=== PATIENT | male | born 1985 | race Caucasian/White ===

== ENCOUNTER 2024-06-26 19:20 | Inpatient (IN) | payer BC, SELFPAY ==
--- NOTE | ~2024-06-26 | CT_ITS ---
CLINICAL HISTORY: recent SA by hanging from neck CT cervical spine without contrast Comparison: None Findings: Straightening of the cervical spine is likely positional. No significant degenerative change. No acute fractures or dislocations. Congenital nonfusion of the posterior arch of C1. Visualized intracranial contents are unremarkable. No cervical fluid collections or masses. IMPRESSION: No acute findings. This document has been electronically signed by: Liliya Alvarado MD on 06/29/2024 18:19:41
--- NOTE | ~2024-06-26 | CT_ITS ---
CLINICAL HISTORY: left-sided abd pain, s p colectomy, diverticular CT abdomen and pelvis with contrast Comparison: CT - CT ABDOMEN PELVIS W IV CON - 06/26/24 21:46 EDT Findings: No consolidation or effusion. Unremarkable gallbladder and solid organs. No urolithiasis. Surgical suture materials are noted at the cecum as well as rectosigmoid region. No evidence of bowel obstruction. Pelvic contents unremarkable. Normal appendix. No acute fracture. IMPRESSION: No acute findings. Postsurgical changes related to multifocal colon resection anastomosis without evidence of bowel obstruction. This document has been electronically signed by: Jean Dueñas MD on 06/26/2024 22:38:19
[2024-06-26 19:51] VITALS: BP 120/82; PULSE 91; RESP 18; TEMP 36.8; O2SAT 97; BMI 26.5
[2024-06-26 20:22] LABS: MANUAL DIFF FLAG NO
[2024-06-26 20:24] LABS: Basophils Percent Auto 0.5 % (0-2); Eosinophils Absolute Auto 0.1 X10*3/uL (0.0-0.4); Hematocrit 42.8 % (42.0-52.0); Hemoglobin 15.1 g/dl (14.0-18.0); Imm Gran Abs Auto 0.02 X10*3/uL (0.00-0.03); Imm Gran Pct Auto 0.3 % (0.0-0.4); Lymphocytes Percent Auto 26.3 % (20-40); Mean Corpuscular HGB Conc 35.3 g/dl (31.0-36.0); Mean Corpuscular Hemoglobin 31.7 pg (27.0-33.0); Mean Corpuscular Volume 89.9 fL (80.0-98.0); Mean Platelet Volume 8.5 fL (9.4-12.4); Monocytes Absolute Auto 0.6 X10*3/uL (0.1-1.2); Monocytes Percent Auto 7.3 % (2-11); Neutrophils Percent Auto 64.6 % (45-73); Platelet Count 227 X10*3/uL (160-400); Red Blood Count 4.76 X10*6/uL (4.60-5.80); Red Cell Distribution Width 13.3 % (11.0-16.0); White Blood Count 7.8 X10*3/uL (4.8-10.8)
[2024-06-26 20:41] LABS: Alanine Aminotransferase 32 U/L (0-40); Albumin Level 4.6 g/dL (3.5-5.0); Alkaline Phosphatase 70 U/L (39-117); Anion Gap 13 (12-20); Aspartate Amino Transferase 28 U/L (5-37); Bilirubin Total 0.7 mg/dL (0.0-1.0); Blood Urea Nitrogen 9 mg/dL (9-16); Calcium 9.3 mg/dL (8.4-10.2); Carbon Dioxide 26 mmol/L (22-29); Chloride 106 mmol/L (96-108); Creatinine Clr Calc Pharmacy 118.8; Estimated Glomerular Filt Rate > 60; Ethanol < 10 mg/dL; Glucose Random 87 mg/dL (60-115); Sodium 141 mmol/L (135-145); Total Protein 8.2 g/dL (6.5-8.0)
--- NOTE | 2024-06-26 20:59 | ED_ITS ---
HPI - General Adult General Chief complaint: Psychiatric Symptoms Stated complaint: crisis Time Seen by Provider: 06/26/24 20:39 Source: patient Mode of arrival: ambulatory Limitations: no limitations History of Present Illness ED Provider: DR. Hyman HPI narrative: 39-year-old male came in for evaluation of left-sided abdominal pain, patient with history of chronic abdominal pain and history of diverticular disease, s/p colectomy and ileostomy done at [facility], patient stated that he live with a left-sided abdominal chronic pain causing him severe depression and causing him suicidal ideation, patient unsuccessful suicidal attempt 3 days ago hanging himself in the garage. patient still feels depressed with a plan of jump off the bridge or into traffic. Patient is prescribed ibuprofen for chronic pain. Related Data Allergies Allergy/AdvReac Type Severity Reaction Status Date / Time acetaminophen [From Percocet] AdvReac Drowsy Verified 06/26/24 19:51 metronidazole [From Flagyl] AdvReac Hives Verified 06/26/24 19:52 oxycodone [From Percocet] AdvReac Drowsy Verified 06/26/24 19:51 Review of Systems 2 Review of Systems: all other systems are reviewed and are negative Constitutional: Reports as per HPI and Reports no additional constitutional complaints Eyes: Reports as per HPI and Reports no additional eye complaints Reports system reviewed and no additional complaints, except as documented Cardiovascular: Reports as per HPI and Reports no additional cardiovascular complaints Respiratory: Reports as per HPI and Reports no additional respiratory complaints Gastrointestinal: Reports as per HPI and Reports no additional gastrointestinal complaints Genitourinary: Reports no additional female genitourinary complaints Musculoskeletal: Reports no additional musculoskeletal complaints Skin/Breast: Reports system reviewed and no additional complaints, except as docu Psychiatric: Reports no additional psychiatric complaints Endocrine: Reports no additional endocrine complaints Hematologic/Lymphatic: Reports no additional hematologic/lymphatic complaints Allergic/Immunologic: Reports no additional allergic/immunologic complaints Reports system reviewed and no additional complaints, except as documented and Reports Abnormal speech present [facility] Social History Social History Smoked in Last 30 Days: No Use of substances other than those prescribed or required for medical reasons: Yes Substance Use Type: Marijuana Advance Directives: Yes Advance Directives Information Provided: Yes Advance Directives on File: No Do you have a plan to hurt others: No Plan Physical Exam ED Vital Signs: Vital Signs - 24 hr 06/26/24 19:51 06/26/24 21:30 Temperature 98.3 F Pulse Rate 91 86 Respiratory Rate 18 16 Blood Pressure 120/82 120/79 Pulse Oximetry 97 97 Oxygen Delivery Method Room Air Room Air BMI result Body Mass Index 26.5 Vital signs have been reviewed and appear to be correct. Blood pressure elevated. Heart rate normal. Respiratory rate normal. Temperature normal. Oxygen saturation normal. Appearance: Alert. Oriented X3. No acute distress. Head: Normal external exam. Normocephalic. Atraumatic. No Sharma signs noted. No raccoon eyes noted Eyes: PERRLA. EOMI. Conjunctiva and sclera normal. Eyelids normal. ENT: TM's Normal. Pharynx normal. Uvula midline. Moist mucous membranes. No trismus noted. No drooling noted. No muffled voice noted. Neck: Normal inspection. Neck supple. FROM. No adenopathy. Thyroid Normal. No meningeal signs. No neck mass noted. CVS: Normal heart rate and rhythm. Heart sound normal. No murmurs noted. Pulses normal throughout. Respiratory: No respiratory distress. Painless inspiration. Breath sounds normal. No wheezes/rales/rhonchi noted. Chest nontender. No accessory muscle usage noted or decreased air movement noted. Abdomen: Soft and nontender. Bowel sounds normal in all 4 quadrants. No distention noted. No organomegaly noted. No visible injury noted. Back: No CVA tenderness. Full range of motion noted. Skin: Skin warm and dry. Normal skin color. Normal skin turgor. No rashes/lesions/lacerations noted. Extremities: No lower extremity edema. Extremities exhibit normal range of motion. Extremities nontender. Neuro: Oriented X 3. Cranial nerve exam: II-XII are grossly intact No motor deficit. No sensory deficit. Reflexes normal. Patient Orientation: Person, Place, Time and Situation, okay hygiene and grooming. Fair eye contact, attentive, no tics or tremors. Level of Consciousness: Awake, Appropriate and Alert Patient Behavior: Appropriate, Guarded, Cooperative and Anxious Mood Description: Constricted, Blunted and Apprehensive Affect Description: Constricted, Blunted and Apprehensive Patient Cognition Impaired: No Ability to Follow Directions: Excellent Speech Pattern: Clear, Appropriate and Spontaneous Speech, nonpressured, spontaneous with regular rate and rhythm, normal volume and prosody. No dysarthria. Memory Description: Intact, Immediate Intact and Short Term Intact Hallucinations: None Delusions: Not Present Thought Process: Intact Thought Content: positive for Intact, positive for Logical, +suicidal ideation with plan of either hanging himself/ jumping into traffic or of the bridge. , no homicidal ideation. Depressive Symptoms: Not present. Judgement and Insight: Limited but adequate. Course Reevaluation(s) Reevaluation #1: unsuccessful SI attempt today, patient is still feeling suicidal secondary to chronic abdominal pain, workup for abdominal pain today is unremarkable revealing no acute process will refer to care team for further evaluation. Patient is under section 12. Time: 23:48 Medications Administered Discontinued Medications Generic Name Dose Route Start Last Admin Trade Name Froyq PRN Reason Stop Dose Admin Iohexol 85 ml 06/26/24 21:55 06/26/24 21:55 Iohexol 350 Mg/Ml 100 Ml Infus..Btl IV 06/26/24 21:56 85 ml ONCE ONE Administration Ketorolac Tromethamine 15 mg 06/26/24 20:55 06/26/24 21:33 Ketorolac Tromethamine 15 Mg/Ml Vial IVPUSH 06/26/24 20:56 15 mg ONCE ONE Administration Morphine Sulfate 2 mg 06/26/24 20:55 06/26/24 21:33 Morphine Sulfate 2 Mg/Ml Cartridge IVPUSH 06/26/24 20:56 2 mg ONCE ONE Administration Protocol Medical Decision Making Differential Diagnosis Differential Diagnoses: The differential diagnosis associated with the presentation includes ( Chronic abdominal pain, acute diverticulitis small- bowel obstruction, pancreatitis, severe anemia, electrolyte derangement, severe depression, suicidal ideation, medical clearance.) Admission/Observation Consideration of admission/observation: Escalation of care including admission/observation considered Lab Data MDM Lab Attestation statement: I reviewed the patient's lab results. 06/26/24 20:19 06/26/24 20:19 Labs: Lab Results 06/26/24 Range/Units 20:19 WBC 7.8 (4.8-10.8) X10*3/uL RBC 4.76 (4.60-5.80) X10*6/uL Hgb 15.1 (14.0-18.0) g/dl Hct 42.8 (42.0-52.0) % MCV 89.9 (80.0-98.0) fL MCH 31.7 (27.0-33.0) pg MCHC 35.3 (31.0-36.0) g/dl RDW 13.3 (11.0-16.0) % Plt Count 227 (160-400) X10*3/uL MPV 8.5 L (9.4-12.4) fL Immature Gran % (Auto) 0.3 (0.0-0.4) % Neut % (Auto) 64.6 (45-73) % Lymph % (Auto) 26.3 (20-40) % [place] % (Auto) 7.3 (2-11) % Eos % (Auto) 1.0 (0-4) % Baso % (Auto) 0.5 (0-2) % Lymph # (Auto) 2.0 (1.2-4.9) X10*3/uL [place] # (Auto) 0.6 (0.1-1.2) X10*3/uL Eos # (Auto) 0.1 (0.0-0.4) X10*3/uL Baso # (Auto) 0.0 (0.0-0.2) X10*3/uL Abs Immat Gran (auto) 0.02 (0.00-0.03) X10*3/uL Absolute Neuts (auto) 5.0 (2.0-8.3) x10*3/uL Absolute Nucleated RBC 0.000 (0.0-0.012) X10*3/uL Nucleated RBC % (auto) 0.0 (0.0-0.2) /100WBC Sodium 141 (135-145) mmol/L Potassium 4.0 (3.3-5.1) mmol/L Chloride 106 (96-108) mmol/L Carbon Dioxide 26 (22-29) mmol/L Anion Gap 13 (12-20) BUN 9 (9-16) mg/dL Creatinine 0.78 (0.5-1.4) mg/dL Estim Creat Clear Calc 118.8 Estimated GFR > 60 Random Glucose 87 (60-115) mg/dL Calcium 9.3 (8.4-10.2) mg/dL Total Bilirubin 0.7 (0.0-1.0) mg/dL AST 28 (5-37) U/L ALT 32 (0-40) U/L Alkaline Phosphatase 70 (39-117) U/L Total Protein 8.2 H (6.5-8.0) g/dL Albumin 4.6 (3.5-5.0) g/dL Lipase 11 (8-78) U/L Ethyl Alcohol < 10 mg/dL Independent Interpretation I performed an independent interpretation of an: CT Scan ( Abdomen pelvis:No acute findings. Postsurgical changes related to multifocal colon resection anastomosis without evidence of bowel obstruction.) Radiology Impression Discussion of test interpretation with radiology: I have reviewed the radiologist's reading. Chronic Conditions Patient?s care impacted by: Other ( Diverticular disease, previous intra- abdominal surgery.) Discharge Plan Discharge Clinical Impression: Depression, Suicidal ideation, Chronic abdominal pain Patient Disposition: Still a Patient Interventions: [place]so-Suicide Risk Severity Scale Last Done: 06/26/24 21:38 Print Language: Tajik
[2024-06-26 21:09] LABS: Lipase 11 U/L (8-78)
[2024-06-26 21:30] VITALS: BP 120/79; PULSE 86; RESP 16; O2SAT 97
[2024-06-26] MEDS: Ketorolac Tromethamine 15 MG/ML VIAL IVPUSH (21:33)
[2024-06-26] MEDS: Morphine Sulfate 2 MG/ML CARTRIDGE IVPUSH (21:33)
[2024-06-26] MEDS: iohexoL 350 MG/ML 100 ML INFUS..BTL 85 ML IV (21:55)
--- NOTE | 2024-06-27 | ECG_ITS ---
Test Reason : QTC Check Blood Pressure : */* mmHG Vent. Rate : 60 BPM Atrial Rate : 60 BPM P-R Int : 150 ms QRS Dur : 90 ms QT Int : 364 ms P-R-T Axes : 29 91 54 degrees QTcB Int : 364 ms Normal sinus rhythm Rightward axis Early repolarization Borderline ECG No previous ECGs available Referred By: Eliane Gay Electronically Signed By: Kobe Arnett
[2024-06-27 00:52] VITALS: BP 117/60; PULSE 82; RESP 16; TEMP 36.4; O2SAT 98
--- NOTE | 2024-06-27 00:53 | PC.NURSE ---
pt report he is depressed, no SI at this time, care team into discuss plan of care, bed search, vitals taken, pt resting in recliner.
[2024-06-27 06:00] VITALS: BP 104/58; PULSE 58; RESP 16; TEMP 36.1; O2SAT 98
--- NOTE | 2024-06-27 06:11 | PC.NURSE ---
pt sleeping all night, pt is calm and cooperative, pt remains on a 1:1 for safety.
[2024-06-27 07:59] LABS: Appearance Urine Clear; Color Urine Dark Yellow; Glucose Urine UA Negative (Negative); Leukocyte Esterase Urine Negative (Negative); Nitrite Urine Negative (Negative); PH 6.5 (5.0-9.0); Specific Gravity - Urine >= 1.030 (1.005-1.025); UMIC TRIGGER UACC YES; Urine Blood Small (1+) (Negative); Urine Ketones Trace mg/dL (Negative); Urine Protein 30 (1+) mg/dL (Neg-Trace)
[2024-06-27 08:08] LABS: Amphetamine Screen Urine Not Detected (Not Detect); Bacteria Urine None Seen (None Seen); Barbiturates, Urine Not Detected (Not Detect); Benzodiazepines Screen Urine POSITIVE (Not Detect); Buprenorphine Scr Not Detected (Not Detect); Cannabinoid Screen Urine POSITIVE (Not Detect); Cocaine Screen Urine Not Detected (Not Detect); Fentanyl, urine Not Detected (Not Detect); Hyaline Casts Urine 0-2 /LPF (0-2); Methadone Screen, Urine Not Detected (Not Detect); Opiate Screen Urine POSITIVE (Not Detect); Oxycodone Screen Urine Not Detected (Not Detect); Phencyclidine Screen Urine Not Detected (Not Detect); RBC Urine 0-2 /HPF (0-2); Squamous Epithelial Cell Urine 0-2 /HPF (0-2); WBC Urine 0-5 /HPF (0-5)
--- NOTE | 2024-06-27 09:00 | PHA.MEDREC ---
Pharmacy Consult ? Medication Reconciliation Pharmacy has reviewed the medication reconciliation. Med list matches claims, called [facility] to confirm directions on Colestipol.
[2024-06-27 09:05] VITALS: BP 130/84; PULSE 81; RESP 20; TEMP 36.6; O2SAT 96
[2024-06-27] MEDS: buPROPion HCl XL 150 MG TAB.ER.24H PO (10:05)
[2024-06-27] MEDS: Ibuprofen 800 MG TABLET PO ×3 (10:05→21:16)
[2024-06-27] MEDS: Cyanocobalamin (Vitamin B-12) 1,000 MCG TABLET 1000 MCG PO (10:05)
[2024-06-27] MEDS: Escitalopram Oxalate 20 MG TABLET PO (10:05)
--- NOTE | 2024-06-27 12:01 | PC.NURSE ---
Pt will be transitioning to M5. RN to RN completed. IV access removed without complication. Pt awaiting transport.
[2024-06-27 12:34] VITALS: BMI 25.7
[2024-06-27 12:35] VITALS: BP 149/90; PULSE 83; TEMP 36.3; O2SAT 97
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
[2024-06-27] MEDS: diazePAM 2 MG TABLET PO ×2 (17:23→23:24)
[2024-06-27 20:00] VITALS: BP 134/86; PULSE 92; RESP 16; TEMP 36.3; O2SAT 99
[2024-06-27] MEDS: traZODone HCL 50 MG TABLET PO ×2 (21:16→23:24)
[2024-06-27] MEDS: COLESTIPOL 1 GM 3 EACH PO (21:16)
[2024-06-27] MEDS: Magnesium Hydrox/Alum Hydrox 30 ML ORAL.SUSP PO (21:43)
[2024-06-28 07:00] VITALS: BMI 25.9
[2024-06-28 08:00] VITALS: BP 112/86; PULSE 92; RESP 18; TEMP 36.8; O2SAT 100
[2024-06-28] MEDS: Cyanocobalamin (Vitamin B-12) 1,000 MCG TABLET 1000 MCG PO (08:29)
[2024-06-28] MEDS: COLESTIPOL 1 GM 3 EACH PO ×2 (08:29→21:38)
[2024-06-28] MEDS: Ibuprofen 800 MG TABLET PO ×3 (08:29→21:37)
[2024-06-28] MEDS: Escitalopram Oxalate 20 MG TABLET PO (08:30)
[2024-06-28] MEDS: buPROPion HCl XL 150 MG TAB.ER.24H PO ×2 (08:30→14:05)
[2024-06-28 09:08] LABS: Estimated Average Glucose 105 mg/dL; Hemoglobin A1C 139.4076 umol/L; Hemoglobin A1c % 5.3 % (<6.0); Total Hemoglobin (HGBA1C) 4014.1568 umol/L
[2024-06-28 09:12] LABS: Cholesterol 141 mg/dL (<200); HDL Cholesterol 55 mg/dL (>40); LDL Cholesterol Calculated 70 mg/dL (<100); Triglycerides 81 mg/dL (<150)
[2024-06-28 09:13] LABS: Alanine Aminotransferase 30 U/L (0-40); Albumin Level 4.5 g/dL (3.5-5.0); Alkaline Phosphatase 70 U/L (39-117); Anion Gap 12 (12-20); Aspartate Amino Transferase 23 U/L (5-37); Bilirubin Total 0.9 mg/dL (0.0-1.0); Blood Urea Nitrogen 11 mg/dL (9-16); Calcium 9.2 mg/dL (8.4-10.2); Carbon Dioxide 27 mmol/L (22-29); Chloride 105 mmol/L (96-108); Creatinine Clr Calc Pharmacy 110.3; Estimated Glomerular Filt Rate > 60; Glucose Fasting 99 mg/dL (60-99); Potassium 3.8 mmol/L (3.3-5.1); Sodium 140 mmol/L (135-145); Total Protein 8.2 g/dL (6.5-8.0)
[2024-06-28 09:28] LABS: TSH reflex Free T4 1.33 uIU/mL (0.32-4.0)
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
--- NOTE | 2024-06-28 10:24 | CONS_ITS ---
DATE OF SERVICE: 06/28/2024 REFERRING PHYSICIAN: Hilario Mcallister MD REASON FOR CONSULTATION: Abdominal pain. HISTORY OF PRESENT ILLNESS: The patient is a pleasant 39-year-old man who was admitted to the inpatient psychiatric unit on June 26 after presenting to the emergency room with complaints of abdominal pain. He has a history of abdominal pain and is followed by a GI provider in [place]. He also has a history of diverticular disease with prior surgery including resection and ostomy with subsequent takedown for apparent perforated diverticulitis. He believes his last colonoscopy was several years ago. He describes chronic abdominal discomfort, which is in the epigastric area, worse after eating, and sometimes relieved by bowel movements. The abdominal discomfort has a crampy component and radiates across the abdomen. There were no other precipitating or relieving factors. He has been on medication in the past which has helped, but is unsure of the name. PAST MEDICAL HISTORY: 1. Abdominal pain and history of diverticular disease with resection as above. 2. Depression with suicide attempt. CURRENT MEDICATIONS: Current medication list is reviewed in the chart. He has a history of irritable bowel syndrome and has been on cholestyramine for this. ALLERGIES: MULTIPLE MEDICATION ALLERGIES ARE REVIEWED. FAMILY HISTORY: This is reviewed with the patient and is noncontributory. SOCIAL HISTORY: He denies tobacco use. He does use marijuana and states alcohol use is occasional. REVIEW OF SYSTEMS: SKIN: No pruritus. HEENT: Negative. CARDIOPULMONARY: No shortness of breath or chest pain. GASTROINTESTINAL: As above. GENITOURINARY: Negative. NEUROPSYCHIATRIC: Negative. PHYSICAL EXAMINATION: GENERAL: Shows a pleasant male, sitting comfortably in bed. VITAL SIGNS: Reviewed in electronic medical record and are stable. SKIN: Anicteric. HEENT: Shows no scleral icterus. NECK: Without lymphadenopathy or thyromegaly. LUNGS: Clear. HEART: Shows a regular rate and rhythm. S1, S2. No murmur. ABDOMEN: Soft without focal masses or tenderness. Bowel sounds are present. No organomegaly is noted. EXTREMITIES: Without edema. LABORATORY DATA: Remarkable for white blood cell count of 7.8. Chemistries are fairly unremarkable. Tox screen was positive for opiates, benzodiazepines, and marijuana. Imaging of the abdomen includes CT scanning of the abdomen and pelvis which shows surgical changes without obstruction. IMPRESSION: Abdominal pain with abdominal symptoms are consistent with irritable bowel syndrome. I have recommended a trial of dicyclomine 10 mg 4 times daily. We will review outside records as they become available. The patient requested a low fat diet with Ensure supplements and this will be ordered. Thanks for asking me to see him. I will follow him in the hospital as needed. MD CHAD Dao/PAULO / [phone]
[2024-06-28] MEDS: Dicyclomine HCl 10 MG CAPSULE PO ×2 (11:14→17:08)
[2024-06-28] MEDS: Famotidine 20 MG TABLET PO (14:05)
[2024-06-28] MEDS: hydrOXYzine HCL 25 MG TABLET PO (17:28)
[2024-06-28 20:00] VITALS: BP 111/73; PULSE 82; RESP 16; TEMP 36.7; O2SAT 98
[2024-06-28 21:37] VITALS: BP 111/73
[2024-06-28] MEDS: diazePAM 2 MG TABLET PO (21:37)
[2024-06-28] MEDS: traZODone HCL 100 MG TABLET PO (21:37)
[2024-06-28] MEDS: cloNIDine HCL 0.1 MG TABLET PO (21:37)
[2024-06-29] MEDS: Dicyclomine HCl 10 MG CAPSULE PO ×3 (07:28→17:05)
[2024-06-29 07:49] VITALS: BP 101/55; PULSE 86; TEMP 36.4; O2SAT 98
[2024-06-29] MEDS: Escitalopram Oxalate 20 MG TABLET PO (08:44)
[2024-06-29] MEDS: COLESTIPOL 1 GM 3 EACH PO ×2 (08:44→20:19)
[2024-06-29] MEDS: Famotidine 20 MG TABLET PO (08:45)
[2024-06-29] MEDS: buPROPion HCl XL 300 MG TAB.ER.24H PO (08:45)
[2024-06-29] MEDS: Ibuprofen 800 MG TABLET PO ×3 (08:45→20:18)
[2024-06-29] MEDS: Cyanocobalamin (Vitamin B-12) 1,000 MCG TABLET 1000 MCG PO (08:46)
[2024-06-29] MEDS: diazePAM 2 MG TABLET PO ×2 (13:12→18:40)
--- NOTE | 2024-06-29 13:12 | PC.NURSE ---
pt reports abdominal pain 8/10, anxiety 5/10. Valium 2mg administered, effectiveness pending
--- NOTE | 2024-06-29 16:30 | P.PNPSI_ITS ---
Subjective Subjective Date of Service: 06/29/24 Reason For Visit: Depression SI Interim History: Met with patient; discussed with team Patient remains depressed but overall feeling better and more optimistic. Patient is talking about his plans for aftercare and trying to figure out where he might live. Patient somewhat ambivalent, saying he wants to get back to work as soon as possible but also feels that he is benefitting from being on the unit and wants to make sure that medication regimen and aftercare plans or set up before he leaves. Patient agrees to leave Wellbutrin at current dose and see how it goes; slept well last night and agrees to having trazodone scheduled. Remains without any SI at all and again says how regretful he was, saying that was such a stupid thing and he would never do it again Mental Status Exam Mental Status Exam Narrative: Pt is alert and oriented; behavior is cooperative, calm, friendly; patient is not in distress; dressed in casual attire with with adequate hygiene and grooming; mood is described as okay and affect congruent, less downcast; eye contact a little appropriate; Speech is a little slowed, soft; normal prosody; some psychomotor retardation present; thought process is organized and goal directed; Thought content is on planning for aftercare, psychosocial stressors, tx; otherwise pertinent to relevant topics and without any delusional content, paranoid ideations or grandiosity; denies any SI/HI. Denies AVH and there is no evidence of perceptual disturbance. Patients insight and judgment fair Diagnostics Vital Signs (24Hr): Vital Signs - 24 hr 06/28/24 20:00 06/28/24 21:37 06/29/24 07:49 Temperature 98.1 F 97.5 F Pulse Rate 82 86 Respiratory Rate 16 Blood Pressure 111/73 111/73 101/55 L Pulse Oximetry 98 98 Oxygen Delivery Method Room Air Room Air BMI result Body Mass Index 25.9 Labs 06/26/24 20:19 06/28/24 07:59 Labs: Laboratory Results - last 48 hr 06/28/24 07:59 Sodium 140 Potassium 3.8 Chloride 105 Carbon Dioxide 27 Anion Gap 12 BUN 11 Creatinine 0.84 Estim Creat Clear Calc 110.3 Estimated GFR > 60 Fasting Glucose 99 Estimat Average Glucose 105 Hemoglobin A1c % 5.3 Calcium 9.2 Total Bilirubin 0.9 AST 23 ALT 30 Alkaline Phosphatase 70 Total Protein 8.2 H Albumin 4.5 Triglycerides 81 Cholesterol 141 LDL Cholesterol, Calc 70 HDL Cholesterol 55 TSH 1.33 Medications Medications Current Medications Al Hydroxide/Mg Hydroxide (Magnesium Hydrox/Alum Hydrox 30 Ml Oral.Susp) 30 ml PO Q6H PRN PRN Reason: Heartburn/Nausea Last Admin: 06/27/24 21:43 Dose: 30 ml Bupropion HCl (Bupropion Hcl Xl 300 Mg Tab.Er.24h) 300 mg PO DAILY [facility] Last Admin: 06/29/24 08:45 Dose: 300 mg Clonidine HCl (Clonidine Hcl 0.1 Mg Tablet) 0.1 mg PO BEDTIME [facility]; Protocol Last Admin: 06/28/24 21:37 Dose: 0.1 mg Clonidine HCl (Clonidine Hcl 0.1 Mg Tablet) 0.1 mg PO Q4H PRN; Protocol PRN Reason: moderate anxiety Cyanocobalamin (Cyanocobalamin (Vitamin B-12) 1,000 Mcg Tablet) 1,000 mcg PO DAILY [facility] Last Admin: 06/29/24 08:46 Dose: 1,000 mcg Diazepam (Diazepam 2 Mg Tablet) 2 mg PO TID PRN PRN Reason: abdominal discomfort Last Admin: 06/29/24 13:12 Dose: 2 mg Dicyclomine HCl (Dicyclomine Hcl 10 Mg Capsule) 10 mg PO TIDAC [facility] Last Admin: 06/29/24 12:21 Dose: 10 mg Escitalopram Oxalate (Escitalopram Oxalate 20 Mg Tablet) 20 mg PO DAILY [facility] Last Admin: 06/29/24 08:44 Dose: 20 mg Famotidine (Famotidine 20 Mg Tablet) 20 mg PO DAILY [facility] Last Admin: 06/29/24 08:45 Dose: 20 mg Hydroxyzine HCl (Hydroxyzine Hcl 25 Mg Tablet) 25 mg PO Q6H PRN PRN Reason: mild anxiety Last Admin: 06/28/24 17:28 Dose: 25 mg Ibuprofen (Ibuprofen 800 Mg Tablet) 800 mg PO TID [facility] Last Admin: 06/29/24 15:40 Dose: 800 mg Magnesium Hydroxide (Milk Of Magnesia 30 Ml Oral.Susp) 30 ml PO DAILY PRN PRN Reason: Constipation Nicotine (Nicotine 21 Mg Patch.Td24) 21 mg TRANSDERMA DAILY PRN PRN Reason: smoking cessation Nicotine Polacrilex (Nicotine Polacrilex 2 Mg Gum) 4 mg BUCCAL Q2H PRN PRN Reason: Nicotine Cravings Pat Own Med ( Colestipol 1 Gram Tablet) 3 gm PO BID [facility] Last Admin: 06/29/24 08:44 Dose: 3 gm Olanzapine (Olanzapine 5 Mg Tablet) 5 mg PO TID PRN PRN Reason: agitation Trazodone HCl (Trazodone Hcl 50 Mg Tablet) 50 mg PO BEDTIME PRN PRN Reason: continued Insomnia Trazodone HCl (Trazodone Hcl 100 Mg Tablet) 100 mg PO BEDTIME [facility] Allergies Allergies Allergy/AdvReac Type Severity Reaction Status Date / Time acetaminophen [From Percocet] AdvReac Drowsy Verified 06/26/24 19:51 metronidazole [From Flagyl] AdvReac Hives Verified 06/26/24 19:52 oxycodone [From Percocet] AdvReac Drowsy Verified 06/26/24 19:51 Assessment & Plan Assessment & Plan (1) MDD (major depressive disorder), recurrent severe, without psychosis: Status: Acute Code(s): F33.2 - Major depressive disorder, recurrent severe without psychotic features (2) PTSD (post-traumatic stress disorder): Status: Acute Code(s): F43.10 - Post-traumatic stress disorder, unspecified (3) Seasonal affective disorder: Status: Acute Code(s): F33.8 - Other recurrent depressive disorders Plan Patient is a 39-year-old male with history of PTSD, MDD, diverticular disease s/p resection and ostomy (reanastomosed in 2020) who presents for worsening depression and recent suicide attempt in the face of psychosocial stressors and marital strife. Patient reports that he has been depressed off and on since his surgery in 2020. Patient's depression is typically worse in the wintertime but for the past several months patient depression has worsened has he his fiancee have been having marital strife; depression worsened this past May as he started to have abdominal pain although cleared by his GI provider/CT scan. Patient works many hours a week, takes classes for his GED and gets only 2-3 hours of sleep a night. About a week ago patient had a discussion with his fiancee he wanted to end the relationship. This past week patient woke up in the morning, with abdominal pain that has unremitting and feeling particularly depressed and hopeless. Patient says this past [place] he had no plans or thoughts of suicide however on this particular mourning the thought occur to him and he went to hang himself in the basement but when this was not an option he went to the garage and did hang himself from the rafters but after a short moment, the rafters broke and he fell to the ground. Patient immediately regretted his attempt and did not tell anyone, cleaning up the mess. Patient's SI fully resolved however he remained depressed. He presented to the emergency room for abdominal pain at which time he said that he had tried to hang himself earlier in this week and so was psychiatrically admitted. Formulation/clinical reasoning: Patient seen by GI who addressed abdominal pain and started on medications that seem to be helping which is making patient more relaxed Patient shares that he fully regrets his suicide attempt, knows he needs to be here for his children and is embarrassed by his behavior; denies any SI at all and says whenever do it again. He does however acknowledge his depression which has been untreated for quite some time, patient pushing himself to cope with it on his own. Patient has been on Wellbutrin XL 150 mg and Lexapro 20 mg for about a year with no benefit. He agrees that he needs help and is open to medication management. -patient did have suicide attempt by hanging about 3 days prior to presenting to the emergency room; no CT cervical spine ordered so will order on now; discussed with Dr. Gay who agrees CTA unnecessary at this time Hospital course: 06/29Patient remains depressed but overall feeling better and more optimistic. Patient is talking about his plans for aftercare and trying to figure out where he might live. Patient somewhat ambivalent, saying he wants to get back to work as soon as possible but also feels that he is benefitting from being on the unit and wants to make sure that medication regimen and aftercare plans or set up before he leaves. Patient agrees to leave Wellbutrin at current dose and see how it goes; slept well last night and agrees to having trazodone scheduled. Remains without any SI at all and again says how regretful he was, saying that was such a stupid thing and he would never do it again -abdominal pain remains relieved -CT cervical spine still pending; continuity writer reached out to manager of radiology to see if can get impression read Plan Continue Wellbutrin XL to 300 mg daily Continue Lexapro 20 mg daily Add clonidine p.r.n. Add trazodone p.r.n. dr. Flores abdominal pain with abdominal symptoms are consistent with irritable bowel syndrome. I have recommended a trial of dicyclomine 10 mg 4 times daily Patient educated on: diagnosis, medication risk/benefits and medical condition Informed Consent: understands Reason for continued inpatient stay Substantial Risk for: rapid decompensation Time Spent With Patient Time: Total time managing care of this patient today ____ minutes.
[2024-06-29 20:00] VITALS: BP 125/68; PULSE 98; RESP 16; TEMP 37.1; O2SAT 98
[2024-06-29] MEDS: traZODone HCL 100 MG TABLET PO (20:18)
[2024-06-29] MEDS: cloNIDine HCL 0.1 MG TABLET PO (20:18)
[2024-06-29] MEDS: hydrOXYzine HCL 25 MG TABLET PO (20:19)
[2024-06-30 08:00] VITALS: BP 119/74; PULSE 94; RESP 16; TEMP 36.6; O2SAT 97
[2024-06-30] MEDS: Famotidine 20 MG TABLET PO (09:36)
[2024-06-30] MEDS: Ibuprofen 800 MG TABLET PO ×3 (09:36→22:08)
[2024-06-30] MEDS: Cyanocobalamin (Vitamin B-12) 1,000 MCG TABLET 1000 MCG PO (09:36)
[2024-06-30] MEDS: COLESTIPOL 1 GM 3 EACH PO ×2 (09:36→22:06)
[2024-06-30] MEDS: Dicyclomine HCl 10 MG CAPSULE PO ×3 (09:37→18:37)
[2024-06-30] MEDS: Escitalopram Oxalate 20 MG TABLET PO (09:38)
[2024-06-30] MEDS: buPROPion HCl XL 300 MG TAB.ER.24H PO (09:38)
--- NOTE | 2024-06-30 09:50 | P.PNPSI_ITS ---
Subjective Subjective Date of Service: 06/30/24 Reason For Visit: Depression SI Interim History: Met with patient; discussed with team Patient said that his mood was overall little better however he had a challenging conversation today with his ex-fiance which resulted in increased depression. He still is coping with it but said it was difficult to handle. Discussed medications and patient agreed to increase Wellbutrin to 450 mg. He continues to sleep well. Reviewed CT Cervical Spine: IMPRESSION: No acute findings. Mental Status Exam Mental Status Exam Narrative: Pt is alert and oriented; behavior is cooperative, calm, friendly; patient is not in distress; dressed in casual attire with with adequate hygiene and grooming; mood is described as depressed and affect congruent, downcast; eye contact a little appropriate; Speech is a little slowed, soft; normal prosody; some psychomotor retardation present; thought process is organized and goal directed; Thought content is on planning for aftercare, psychosocial stressors, tx; otherwise pertinent to relevant topics and without any delusional content, paranoid ideations or grandiosity; denies any SI/HI. Denies AVH and there is no evidence of perceptual disturbance. Patients insight and judgment fair Diagnostics Vital Signs (24Hr): Vital Signs - 24 hr 06/29/24 20:00 06/30/24 08:00 Temperature 98.8 F 97.8 F Pulse Rate 98 94 Respiratory Rate 16 16 Blood Pressure 125/68 119/74 Pulse Oximetry 98 97 Oxygen Delivery Method Room Air Room Air BMI result Body Mass Index 25.9 Labs 06/26/24 20:19 06/28/24 07:59 Medications Medications Current Medications Al Hydroxide/Mg Hydroxide (Magnesium Hydrox/Alum Hydrox 30 Ml Oral.Susp) 30 ml PO Q6H PRN PRN Reason: Heartburn/Nausea Last Admin: 06/27/24 21:43 Dose: 30 ml Bupropion HCl (Bupropion Hcl Xl 300 Mg Tab.Er.24h) 300 mg PO DAILY [facility] Last Admin: 06/30/24 09:38 Dose: 300 mg Clonidine HCl (Clonidine Hcl 0.1 Mg Tablet) 0.1 mg PO Q4H PRN; Protocol PRN Reason: moderate anxiety Clonidine HCl (Clonidine Hcl 0.1 Mg Tablet) 0.1 mg PO BID [facility]; Protocol Last Admin: 06/30/24 09:39 Dose: Not Given Cyanocobalamin (Cyanocobalamin (Vitamin B-12) 1,000 Mcg Tablet) 1,000 mcg PO DAILY [facility] Last Admin: 06/30/24 09:36 Dose: 1,000 mcg Diazepam (Diazepam 2 Mg Tablet) 2 mg PO TID PRN PRN Reason: abdominal discomfort Last Admin: 06/29/24 18:40 Dose: 2 mg Dicyclomine HCl (Dicyclomine Hcl 10 Mg Capsule) 10 mg PO TIDAC [facility] Last Admin: 06/30/24 09:37 Dose: 10 mg Escitalopram Oxalate (Escitalopram Oxalate 20 Mg Tablet) 20 mg PO DAILY [facility] Last Admin: 06/30/24 09:38 Dose: 20 mg Famotidine (Famotidine 20 Mg Tablet) 20 mg PO DAILY [facility] Last Admin: 06/30/24 09:36 Dose: 20 mg Hydroxyzine HCl (Hydroxyzine Hcl 25 Mg Tablet) 25 mg PO Q6H PRN PRN Reason: mild anxiety Last Admin: 06/29/24 20:19 Dose: 25 mg Ibuprofen (Ibuprofen 800 Mg Tablet) 800 mg PO TID [facility] Last Admin: 06/30/24 09:36 Dose: 800 mg Magnesium Hydroxide (Milk Of Magnesia 30 Ml Oral.Susp) 30 ml PO DAILY PRN PRN Reason: Constipation Nicotine (Nicotine 21 Mg Patch.Td24) 21 mg TRANSDERMA DAILY PRN PRN Reason: smoking cessation Nicotine Polacrilex (Nicotine Polacrilex 2 Mg Gum) 4 mg BUCCAL Q2H PRN PRN Reason: Nicotine Cravings Pat Own Med ( Colestipol 1 Gram Tablet) 3 gm PO BID [facility] Last Admin: 06/30/24 09:36 Dose: 3 gm Olanzapine (Olanzapine 5 Mg Tablet) 5 mg PO TID PRN PRN Reason: agitation Trazodone HCl (Trazodone Hcl 50 Mg Tablet) 50 mg PO BEDTIME PRN PRN Reason: continued Insomnia Trazodone HCl (Trazodone Hcl 100 Mg Tablet) 100 mg PO BEDTIME [facility] Last Admin: 06/29/24 20:18 Dose: 100 mg Allergies Allergies Allergy/AdvReac Type Severity Reaction Status Date / Time acetaminophen [From Percocet] AdvReac Drowsy Verified 06/26/24 19:51 metronidazole [From Flagyl] AdvReac Hives Verified 06/26/24 19:52 oxycodone [From Percocet] AdvReac Drowsy Verified 06/26/24 19:51 Assessment & Plan Assessment & Plan (1) MDD (major depressive disorder), recurrent severe, without psychosis: Status: Acute Code(s): F33.2 - Major depressive disorder, recurrent severe without psychotic features (2) PTSD (post-traumatic stress disorder): Status: Acute Code(s): F43.10 - Post-traumatic stress disorder, unspecified (3) Seasonal affective disorder: Status: Acute Code(s): F33.8 - Other recurrent depressive disorders Plan Patient is a 39-year-old male with history of PTSD, MDD, diverticular disease s/p resection and ostomy (reanastomosed in 2020) who presents for worsening depression and recent suicide attempt in the face of psychosocial stressors and marital strife. Patient reports that he has been depressed off and on since his surgery in 2020. Patient's depression is typically worse in the wintertime but for the past several months patient depression has worsened has he his fiancee have been having marital strife; depression worsened this past May as he started to have abdominal pain although cleared by his GI provider/CT scan. Patient works many hours a week, takes classes for his [employer] and gets only 2-3 hours of sleep a night. About a week ago patient had a discussion with his fiancee he wanted to end the relationship. This past week patient woke up in the morning, with abdominal pain that has unremitting and feeling particularly depressed and hopeless. Patient says this past Tuesday he had no plans or thoughts of suicide however on this particular mourning the thought occur to him and he went to hang himself in the basement but when this was not an option he went to the garage and did hang himself from the rafters but after a short moment, the rafters broke and he fell to the ground. Patient immediately regretted his attempt and did not tell anyone, cleaning up the mess. Patient's SI fully resolved however he remained depressed. He presented to the emergency room for abdominal pain at which time he said that he had tried to hang himself earlier in this week and so was psychiatrically admitted. Formulation/clinical reasoning: Patient seen by GI who addressed abdominal pain and started on medications that seem to be helping which is making patient more relaxed Patient shares that he fully regrets his suicide attempt, knows he needs to be here for his children and is embarrassed by his behavior; denies any SI at all and says whenever do it again. He does however acknowledge his depression which has been untreated for quite some time, patient pushing himself to cope with it on his own. Patient has been on Wellbutrin XL 150 mg and Lexapro 20 mg for about a year with no benefit. He agrees that he needs help and is open to medication management. -patient did have suicide attempt by hanging about 3 days prior to presenting to the emergency room; no CT cervical spine ordered so will order on now; discussed with Dr. Gay who agrees CTA unnecessary at this time Hospital course: 06/29 Patient remains depressed but overall feeling better and more optimistic. Patient is talking about his plans for aftercare and trying to figure out where he might live. Patient somewhat ambivalent, saying he wants to get back to work as soon as possible but also feels that he is benefitting from being on the unit and wants to make sure that medication regimen and aftercare plans or set up before he leaves. Patient agrees to leave Wellbutrin at current dose and see how it goes; slept well last night and agrees to having trazodone scheduled. Remains without any SI at all and again says how regretful he was, saying that was such a stupid thing and he would never do it again -abdominal pain remains relieved -CT cervical spine still pending; sports book writer reached out to supervisor pyrotechnic loading to see if can get impression read 06/30 Patient said that his mood was overall little better however he had a challenging conversation today with his ex-fiance which resulted in increased depression. He still is coping with it but said it was difficult to handle. Discussed medications and patient agreed to increase Wellbutrin to 450 mg. He continues to sleep well. Reviewed CT Cervical Spine: IMPRESSION: No acute findings. Plan Increase to Wellbutrin XL to 450 mg daily Continue Lexapro 20 mg daily Clonidine 0.1 mg b.i.d. Trazodone [address] Flores abdominal pain with abdominal symptoms are consistent with irritable bowel syndrome. I have recommended a trial of dicyclomine 10 mg 4 times daily Patient educated on: diagnosis, medication risk/benefits, therapeutic strategies and medical condition Informed Consent: understands Reason for continued inpatient stay Substantial Risk for: stable for discharge and rapid decompensation Time Spent With Patient Time: Total time managing care of this patient today ____ minutes.
[2024-06-30] MEDS: diazePAM 2 MG TABLET PO (18:49)
[2024-06-30 20:00] VITALS: BP 133/89; PULSE 100; RESP 16; TEMP 36.6; O2SAT 100
[2024-06-30] MEDS: cloNIDine HCL 0.1 MG TABLET PO (21:02)
[2024-06-30] MEDS: hydrOXYzine HCL 25 MG TABLET PO (21:02)
[2024-06-30] MEDS: traZODone HCL 100 MG TABLET PO (22:17)
[2024-07-01 08:00] VITALS: BP 115/70; PULSE 92; TEMP 36.8; O2SAT 98
[2024-07-01] MEDS: COLESTIPOL 1 GM 3 EACH PO ×2 (10:19→22:22)
[2024-07-01 10:20] VITALS: BP 131/84
[2024-07-01] MEDS: buPROPion HCl XL 150 MG TAB.ER.24H 450 MG PO (10:20)
[2024-07-01] MEDS: cloNIDine HCL 0.1 MG TABLET PO ×2 (10:20→22:23)
[2024-07-01] MEDS: Escitalopram Oxalate 20 MG TABLET PO (10:20)
[2024-07-01] MEDS: Dicyclomine HCl 10 MG CAPSULE PO ×3 (10:20→16:25)
[2024-07-01] MEDS: Famotidine 20 MG TABLET PO (10:20)
[2024-07-01] MEDS: Ibuprofen 800 MG TABLET PO ×3 (10:20→20:36)
[2024-07-01] MEDS: Cyanocobalamin (Vitamin B-12) 1,000 MCG TABLET 1000 MCG PO (10:22)
--- NOTE | 2024-07-01 11:38 | HO.PSYCHPN ---
Subjective Subjective Date of Service: 07/01/24 Reason For Visit: Depression SI Interim History: met w/ patient; discussed with team pt depressed but overall feels better; agrees that end of relationship is depressing and it's normal to have sad feelings about it. He shared about long history of trauma which is extensive and sees how deeply it's affected him. Is future oriented, looking forward to getting back to work and seeing his kids. Says he'll never feel SI again despite sadness; he's wanting to get into therapy to finally process trauma experiences. Pt says he's ready for discharge and would like to go tomorrow. abdominal pain remains resolved Mental Status Exam Mental Status Exam Narrative: Pt is alert and oriented; behavior is cooperative, calm, friendly; patient is not in distress; dressed in casual attire with with adequate hygiene and grooming; mood is described as depressed and but not downcast, brighter; eye contact a little appropriate; Speech normal volume, rate, prosody; no psychomotor retardation present; thought process is organized and goal directed; Thought content is on planning for aftercare, psychosocial stressors, tx; otherwise pertinent to relevant topics and without any delusional content, paranoid ideations or grandiosity; denies any SI/HI. Denies AVH and there is no evidence of perceptual disturbance. Patients insight and judgment fair Diagnostics Vital Signs (24Hr): Vital Signs - 24 hr 06/30/24 20:00 07/01/24 08:00 07/01/24 10:20 Temperature 98 F 98.2 F Pulse Rate 100 92 Respiratory Rate 16 Blood Pressure 133/89 115/70 131/84 Pulse Oximetry 100 98 Oxygen Delivery Method Room Air Room Air BMI result Body Mass Index 25.9 Labs 06/26/24 20:19 06/28/24 07:59 Medications Medications Current Medications Al Hydroxide/Mg Hydroxide (Magnesium Hydrox/Alum Hydrox 30 Ml Oral.Susp) 30 ml PO Q6H PRN PRN Reason: Heartburn/Nausea Last Admin: 06/27/24 21:43 Dose: 30 ml Bupropion HCl (Bupropion Hcl Xl 150 Mg Tab.Er.24h) 450 mg PO DAILY [facility] Last Admin: 07/01/24 10:20 Dose: 450 mg Clonidine HCl (Clonidine Hcl 0.1 Mg Tablet) 0.1 mg PO Q4H PRN; Protocol PRN Reason: moderate anxiety Clonidine HCl (Clonidine Hcl 0.1 Mg Tablet) 0.1 mg PO BID [facility]; Protocol Last Admin: 07/01/24 10:20 Dose: 0.1 mg Cyanocobalamin (Cyanocobalamin (Vitamin B-12) 1,000 Mcg Tablet) 1,000 mcg PO DAILY [facility] Last Admin: 07/01/24 10:22 Dose: 1,000 mcg Diazepam (Diazepam 2 Mg Tablet) 2 mg PO TID PRN PRN Reason: abdominal discomfort Last Admin: 06/30/24 18:49 Dose: 2 mg Dicyclomine HCl (Dicyclomine Hcl 10 Mg Capsule) 10 mg PO TIDAC [facility] Last Admin: 07/01/24 10:20 Dose: 10 mg Escitalopram Oxalate (Escitalopram Oxalate 20 Mg Tablet) 20 mg PO DAILY [facility] Last Admin: 07/01/24 10:20 Dose: 20 mg Famotidine (Famotidine 20 Mg Tablet) 20 mg PO DAILY [facility] Last Admin: 07/01/24 10:20 Dose: 20 mg Hydroxyzine HCl (Hydroxyzine Hcl 25 Mg Tablet) 25 mg PO Q6H PRN PRN Reason: mild anxiety Last Admin: 06/30/24 21:02 Dose: 25 mg Ibuprofen (Ibuprofen 800 Mg Tablet) 800 mg PO TID [facility] Last Admin: 07/01/24 10:20 Dose: 800 mg Magnesium Hydroxide (Milk Of Magnesia 30 Ml Oral.Susp) 30 ml PO DAILY PRN PRN Reason: Constipation Nicotine (Nicotine 21 Mg Patch.Td24) 21 mg TRANSDERMA DAILY PRN PRN Reason: smoking cessation Nicotine Polacrilex (Nicotine Polacrilex 2 Mg Gum) 4 mg BUCCAL Q2H PRN PRN Reason: Nicotine Cravings Pat Own Med ( Colestipol 1 Gram Tablet) 3 gm PO BID [facility] Last Admin: 07/01/24 10:19 Dose: 3 gm Trazodone HCl (Trazodone Hcl 50 Mg Tablet) 50 mg PO BEDTIME PRN PRN Reason: continued Insomnia Trazodone HCl (Trazodone Hcl 25 Mg Halftab) 75 mg PO BEDTIME [facility] Allergies Allergies Allergy/AdvReac Type Severity Reaction Status Date / Time acetaminophen [From Percocet] AdvReac Drowsy Verified 06/26/24 19:51 metronidazole [From Flagyl] AdvReac Hives Verified 06/26/24 19:52 oxycodone [From Percocet] AdvReac Drowsy Verified 06/26/24 19:51 Assessment & Plan Assessment & Plan (1) MDD (major depressive disorder), recurrent severe, without psychosis: Status: Acute Code(s): F33.2 - Major depressive disorder, recurrent severe without psychotic features (2) PTSD (post-traumatic stress disorder): Status: Acute Code(s): F43.10 - Post-traumatic stress disorder, unspecified (3) Seasonal affective disorder: Status: Acute Code(s): F33.8 - Other recurrent depressive disorders Plan Patient is a 39-year-old male with history of PTSD, MDD, diverticular disease s/p resection and ostomy (reanastomosed in 2020) who presents for worsening depression and recent suicide attempt in the face of psychosocial stressors and marital strife. Patient reports that he has been depressed off and on since his surgery in 2020. Patient's depression is typically worse in the wintertime but for the past several months patient depression has worsened has he his fiancee have been having marital strife; depression worsened this past May as he started to have abdominal pain although cleared by his GI provider/CT scan. Patient works many hours a week, takes classes for his GED and gets only 2-3 hours of sleep a night. About a week ago patient had a discussion with his fiancee he wanted to end the relationship. This past week patient woke up in the morning, with abdominal pain that has unremitting and feeling particularly depressed and hopeless. Patient says this past Tuesday he had no plans or thoughts of suicide however on this particular mourning the thought occur to him and he went to hang himself in the basement but when this was not an option he went to the garage and did hang himself from the rafters but after a short moment, the rafters broke and he fell to the ground. Patient immediately regretted his attempt and did not tell anyone, cleaning up the mess. Patient's SI fully resolved however he remained depressed. He presented to the emergency room for abdominal pain at which time he said that he had tried to hang himself earlier in this week and so was psychiatrically admitted. Formulation/clinical reasoning: Patient seen by GI who addressed abdominal pain and started on medications that seem to be helping which is making patient more relaxed Patient shares that he fully regrets his suicide attempt, knows he needs to be here for his children and is embarrassed by his behavior; denies any SI at all and says whenever do it again. He does however acknowledge his depression which has been untreated for quite some time, patient pushing himself to cope with it on his own. Patient has been on Wellbutrin XL 150 mg and Lexapro 20 mg for about a year with no benefit. He agrees that he needs help and is open to medication management. -patient did have suicide attempt by hanging about 3 days prior to presenting to the emergency room; no CT cervical spine ordered so will order on now; discussed with Dr. Gay who agrees CTA unnecessary at this time Hospital course: 06/29 Patient remains depressed but overall feeling better and more optimistic. Patient is talking about his plans for aftercare and trying to figure out where he might live. Patient somewhat ambivalent, saying he wants to get back to work as soon as possible but also feels that he is benefitting from being on the unit and wants to make sure that medication regimen and aftercare plans or set up before he leaves. Patient agrees to leave Wellbutrin at current dose and see how it goes; slept well last night and agrees to having trazodone scheduled. Remains without any SI at all and again says how regretful he was, saying that was such a stupid thing and he would never do it again -abdominal pain remains relieved -CT cervical spine still pending; screenplay writer reached out to welding production supervisor to see if can get impression read 06/30 Patient said that his mood was overall little better however he had a challenging conversation today with his ex-fiance which resulted in increased depression. He still is coping with it but said it was difficult to handle. Discussed medications and patient agreed to increase Wellbutrin to 450 mg. He continues to sleep well. Reviewed CT Cervical Spine: IMPRESSION: No acute findings. 07/01 pt depressed but overall feels better; agrees that end of relationship is depressing and it's normal to have sad feelings about it. He shared about long history of trauma which is extensive and sees how deeply it's affected him. Is future oriented, looking forward to getting back to work and seeing his kids. Says he'll never feel SI again despite sadness; he's wanting to get into therapy to finally process trauma experiences. Pt says he's ready for discharge and would like to go tomorrow. abdominal pain remains resolved Plan Increase to Wellbutrin XL to 450 mg daily Continue Lexapro 20 mg daily Clonidine 0.1 mg b.i.d. Trazodone [address] Flores abdominal pain with abdominal symptoms are consistent with irritable bowel syndrome. I have recommended a trial of dicyclomine 10 mg 4 times daily Patient educated on: diagnosis, medication risk/benefits, therapeutic strategies and medical condition Informed Consent: understands Reason for continued inpatient stay Substantial Risk for: stable for discharge Time Spent With Patient Time: Total time managing care of this patient today ____ minutes.
[2024-07-01] MEDS: diazePAM 2 MG TABLET PO ×2 (18:28→22:26)
[2024-07-01 19:40] VITALS: BP 118/72; PULSE 80; TEMP 36.7; O2SAT 98
[2024-07-01 22:23] VITALS: BP 118/72
[2024-07-01] MEDS: traZODone HCL 25 MG HALFTAB 75 MG PO (22:23)
--- NOTE | 2024-07-02 08:27 | P.DS_ITS ---
DS: Providers Provider Date of Service: 07/02/24 Date of admission: 06/27/24 11:16 Date of discharge: 07/02/24 Primary care physician: AURA Mena Attending physician on admission: Hilario Mcallister Consults: 06/27/24 17:16 Consult to Gastroenterology Routine Consulting Provider: Gastroenterology [facility] Reason for consultation: left abdominal pain s/p anastamosis of illeos/colostomy 06/27/24 23:50 Consult to Gastroenterology Routine Consulting Provider: [facility] Reason for consultation: chronic abdominal pain Has provider been notified: No Attending physician on discharge: Hilario Mcallister DS: Diagnosis Discharge Diagnosis (1) MDD (major depressive disorder), recurrent severe, without psychosis: Status: Acute (2) PTSD (post-traumatic stress disorder): Status: Acute (3) Seasonal affective disorder: Status: Acute DS: Medications Discharge Medications Home Medications: Home Medications ?Medication ?Instructions ?Recorded ?Confirmed bupropion HCl 150 mg 24 hr tablet, 150 mg PO DAILY 06/27/24 06/27/24 extended release colestipol 1 gram tablet 3 g PO BID 06/27/24 06/27/24 cyanocobalamin (vitamin B-12) 1,000 mcg PO DAILY 06/27/24 06/27/24 1,000 mcg tablet (Vitamin B-12) escitalopram oxalate 20 mg tablet 20 mg PO DAILY 06/27/24 06/27/24 ibuprofen 800 mg tablet 800 mg PO TID 06/27/24 06/27/24 sildenafil 100 mg tablet 50 mg PO DAILY PRN intercourse 06/27/24 06/27/24 Mental Status Exam Mental Status Exam Narrative: Pt is alert and oriented; behavior is cooperative, calm, friendly; patient is not in distress; dressed in casual attire with with adequate hygiene and grooming; mood is described as ok and affect congruent, brighter; eye contact appropriate; Speech normal volume, rate, prosody; no psychomotor retardation present; thought process is organized and goal directed; Thought content is on planning for aftercare, psychosocial stressors, tx; otherwise pertinent to relevant topics and without any delusional content, paranoid ideations or grandiosity; denies any SI/HI. Denies AVH and there is no evidence of perceptual disturbance. Patients insight and judgment fair Data Data Completed and Pending Completed studies during hospitalization [Text1]: 06/26/24 06/27/24 06/28/24 20:19 07:49 07:59 WBC 7.8 RBC 4.76 Hgb 15.1 Hct 42.8 MCV 89.9 MCH 31.7 MCHC 35.3 RDW 13.3 Plt Count 227 MPV 8.5 L Immature Gran % (Auto) 0.3 Neut % (Auto) 64.6 Lymph % (Auto) 26.3 [place] % (Auto) 7.3 Eos % (Auto) 1.0 Baso % (Auto) 0.5 Lymph # (Auto) 2.0 [place] # (Auto) 0.6 Eos # (Auto) 0.1 Baso # (Auto) 0.0 Abs Immat Gran (auto) 0.02 Absolute Neuts (auto) 5.0 Absolute Nucleated RBC 0.000 Nucleated RBC % (auto) 0.0 Sodium 141 140 Potassium 4.0 3.8 Chloride 106 105 Carbon Dioxide 26 27 Anion Gap 13 12 BUN 9 11 Creatinine 0.78 0.84 Estim Creat Clear Calc 118.8 110.3 Estimated GFR > 60 > 60 Random Glucose 87 Fasting Glucose 99 Estimat Average Glucose 105 Hemoglobin A1c % 5.3 Calcium 9.3 9.2 Total Bilirubin 0.7 0.9 AST 28 23 ALT 32 30 Alkaline Phosphatase 70 70 Total Protein 8.2 H 8.2 H Albumin 4.6 4.5 Triglycerides 81 Cholesterol 141 LDL Cholesterol, Calc 70 HDL Cholesterol 55 Lipase 11 TSH 1.33 Urine Color Dark Yellow Urine Appearance Clear Urine pH 6.5 Ur Specific [place] >= 1.030 H Urine Protein 30 (1+) H Urine Glucose (UA) Negative Urine Ketones Trace Urine Blood Small (1+) H Urine Nitrite Negative Ur Leukocyte Esterase Negative Urine RBC 0-2 Urine WBC 0-5 Ur Squamous Epith Cells 0-2 Urine Bacteria None Seen Hyaline Casts 0-2 Urine Opiates Screen POSITIVE H Ur Buprenorphine Scrn Not Detected Ur Oxycodone Screen Not Detected Urine Methadone Screen Not Detected Urine Fentanyl Screen Not Detected Ur Barbiturates Screen Not Detected Ur Phencyclidine Scrn Not Detected Ur Amphetamines Screen Not Detected U Benzodiazepines Scrn POSITIVE H Urine Cocaine Screen Not Detected U Marijuana (THC) Screen POSITIVE H Ethyl Alcohol < 10 DS: Summary Hospital Course Hospital Course: HPI Patient is a 39-year-old male with history of PTSD, MDD, diverticular disease s/p resection and ostomy (reanastomosed in 2020) who presents for worsening depression and recent suicide attempt in the face of psychosocial stressors and marital strife. Patient reports that he has been depressed off and on since his surgery in 2020. Patient's depression is typically worse in the wintertime but for the past several months patient depression has worsened has he his fidougiee have been having marital strife; depression worsened this past May as he started to have abdominal pain although cleared by his GI provider/CT scan. Patient works many hours a week, takes classes for his [employer] and gets only 2-3 hours of sleep a night. About a week ago patient had a discussion with his fiancee he wanted to end the relationship. This past week patient woke up in the morning, with abdominal pain that has unremitting and feeling particularly depressed and hopeless. Patient says this past Tuesday he had no plans or thoughts of suicide however on this particular mourning the thought occur to him and he went to hang himself in the basement but when this was not an option he went to the garage and did hang himself from the rafters but after a short moment, the rafters broke and he fell to the ground. Patient immediately regretted his attempt and did not tell anyone, cleaning up the mess. Patient's SI fully resolved however he remained depressed. He presented to the emergency room for abdominal pain at which time he said that he had tried to hang himself earlier in this week and so was psychiatrically admitted. Hospital course: On admission, patient initially did not want to be on the unit, saying that SI had fully resolved and he just wanted to discharge so he could get back to work. -regarding suicide attempt by hanging about 3 days prior to presenting to the emergency room; no CT cervical spine ordered so ordered 1 while on the unit which was unremarkable (discussed with Dr. Gay who agrees CTA unnecessary at this time). Regarding chronic abdominal discomfort: Patient seen by GI who addressed abdominal pain and started on medications which resolved abdominal pain Patient willingly open and further shared that he fully regrets his suicide attempt, knows he needs to be here for his children and is embarrassed by his behavior; again reports all SI is fully resolved and says whenever do it again. He did make a threat to his regarding his concern for infidelity, but again said this was said in a moment of anger and he has no thoughts of harm and never would. He does however acknowledge his depression which has been untreated for quite some time; patient says he pushes himself to cope on his own and has often used working to excess as a distraction. Patient has been on Wellbutrin XL 150 mg and Lexapro 20 mg for about a year with no benefit. He agrees that he needs help and is open to medication management. And agrees to increasing Wellbutrin. Patient remained engaged throughout the rest of his time on the unit. He remained in good behavioral and impulse control, was engaged in treatment and appropriate with peers and staff. SI remained fully resolved and patient had a safety plan. Still had depression and Wellbutrin was further titrated however despite his depression and ending of his marriage, he overall felt better and was optimistic about working through his extensive trauma history with outpt therapist. Pt felt ready for discharge; he is future oriented, looking forward to getting back to work and seeing his kids; he felt capable of figuring out where to live. Pt is above baseline. 12b coming due. He is not in imminent risk for harm to self or others and appropriate to return to the community for treatment. Request for dc honored. Medication: Increased to Wellbutrin XL to 450 mg daily Continue Lexapro 20 mg daily Clonidine 0.1 mg b.i.d. Trazodone 75 mg q.h.s.. Time spent discussing smoking cessation with patient: 3 to 10 minutes Status at Discharge Functional status at discharge: independent ambulation Overall status at discharge: patient is back to baseline Time Spent with Patient Time attestation: Total time managing care of this patient today __40__ minutes. Time spent: Greater than 30 minutes Specific discharge activities: met with patient; discussed with team; scripts; charting Discharge Plan Discharge Anticipated Discharge Date/Time: 07/02/24 12:00 Patient Disposition: Home, Self-Care Discharge Diagnosis: MDD, recurrent, severe without psychosis in partial remission Referrals: Jonatan Kerns PA [Primary Care Provider] - 1 Week Discharge Medications: New dicyclomine 10 mg Capsule 10 mg PO TIDAC 30 Days Qty: 90 1RF clonidine HCl 0.1 mg Tablet 0.1 mg PO BID 30 Days Qty: 60 1RF Protocol: Hold for SBP< HOLD for SBP < : 90 bupropion HCl 300 mg tablet extended release 24 hr 300 mg PO QAM 30 Days Qty: 30 1RF Rx Instructions: take with 150mg tab diazepam 2 mg Tablet 2 mg PO TID PRN (Reason: abdominal discomfort) 30 Days Qty: 90 1RF trazodone 50 mg Tablet 75 mg PO BEDTIME PRN (Reason: insomnia) 30 Days Qty: 45 1RF famotidine 20 mg Tablet 20 mg PO DAILY 30 Days Qty: 30 1RF hydroxyzine HCl 25 mg Tablet 25 mg PO Q6H PRN (Reason: mild anxiety) 30 Days Qty: 30 1RF ibuprofen 800 mg Tablet 800 mg PO TID PRN (Reason: pain) Qty: 0 0RF Continued sildenafil 100 mg tablet 50 mg PO DAILY PRN (Reason: intercourse) colestipol 1 gram tablet 3 g PO BID 30 Days Qty: 180 1RF cyanocobalamin (vitamin B-12) [Vitamin B-12] 1,000 mcg tablet 1,000 mcg PO DAILY 30 Days Qty: 30 1RF escitalopram oxalate 20 mg tablet 20 mg PO DAILY 30 Days Qty: 30 1RF bupropion HCl 150 mg tablet extended release 24 hr 150 mg PO DAILY 30 Days Qty: 30 1RF Rx Instructions: take with 300mg tab Discontinued ibuprofen 800 mg tablet 800 mg PO TID Discharge Orders: Discharge Order (Routine); Ordered 07/03/24 Ordered By: Hilario Mcallister Diet: Regular diet Activity on Discharge: As tolerated Stand Alone Forms: Patient Portal Discharge page, Community Support Print Language: A[place]i Care Plan Goals: Maintain mood and safe behaviors Take medications as prescribed Practice coping skills Continue with outpatient providers and reach out to them as needed Health Concerns: Mood stability and behaviors Chronic abdominal pain and Diverticular disease, s/p reanastomosed colectomy/ileostomy Plan of Treatment: Follow up with your PCP, psychiatric provider and other outpatient providers regarding above concerns Take medications as prescribed Assessment: Risk assessment at time of discharge:? Patient was interviewed prior to discharge and found to be fully oriented and without any SI or HI. Patient has improved insight and judgment and wants to continue treatment. Patient is not in imminent risk of harm to self or others and has a safety plan that includes presenting to the closest ER or calling 911 if feeling unsafe.? Patient has been observed closely by nursing and unit staff throughout admission; patient has not engaged in any behaviors that suggest dangerousness to self or others and has demonstrated appropriate behaviors and impulse control
[2024-07-02] MEDS: Dicyclomine HCl 10 MG CAPSULE PO (08:42)
[2024-07-02 09:02] VITALS: BP 104/66; PULSE 84; TEMP 36.4; O2SAT 98
[2024-07-02] MEDS: buPROPion HCl XL 150 MG TAB.ER.24H 450 MG PO (09:41)
[2024-07-02] MEDS: Ibuprofen 800 MG TABLET PO (09:41)
[2024-07-02] MEDS: Famotidine 20 MG TABLET PO (09:41)
[2024-07-02] MEDS: Cyanocobalamin (Vitamin B-12) 1,000 MCG TABLET 1000 MCG PO (09:42)
[2024-07-02] MEDS: cloNIDine HCL 0.1 MG TABLET PO (09:42)
[2024-07-02] MEDS: Escitalopram Oxalate 20 MG TABLET PO (09:42)
[2024-07-02] MEDS: COLESTIPOL 1 GM 3 EACH PO (09:42)
== END 2024-07-02 11:56 | disposition home or self-care (01) | DRG 751 ==
LOC: HO.ED 23:09 → HO.PM5 06-27 11:35
PROVIDERS: Admitting Provider Psychiatry & Neurology Psychiatry; Emergency Provider Emergency Medicine; PCP Physician Assistant Medical; Visit Provider Psychiatry & Neurology Psychiatry
DX: F33.2 Major depressive disorder, recurrent severe without psychotic features (principal); F33.8 Other recurrent depressive disorders; K58.9 Irritable bowel syndrome, unspecified; F43.10 Post-traumatic stress disorder, unspecified; Z79.899 Other long term (current) drug therapy
CPT/HCPCS: 36415; 72125; 74177; 80053; 80061; 80307; 81001; 83036; 83690; 84443; 85025; 93005; 99285; J1885; J2270; Q9967; S9485

== ENCOUNTER → 2024-06-26 20:55 | Outpatient (BNV) | payer BC, SELFPAY | PROVIDERS: Emergency Provider Emergency Medicine; PCP Physician Assistant Medical; Visit Provider Student in an Organized Health Care Education/Training Program | DX: R10.9 Unspecified abdominal pain (principal) | CPT/HCPCS: 74177 ==

== ENCOUNTER → 2024-06-27 07:56 | Outpatient (BNV) | payer BC, SELFPAY | PROVIDERS: Admitting Provider Psychiatry & Neurology Psychiatry; Emergency Provider Emergency Medicine; PCP Physician Assistant Medical; Visit Provider Internal Medicine Cardiovascular Disease | DX: Z13.6 Encounter for screening for cardiovascular disorders (principal) | CPT/HCPCS: 93010 ==

== ENCOUNTER 2024-06-27 11:16 | Outpatient (BNV) | payer BC, SELFPAY | END 2024-06-28 15:20 | PROVIDERS: Admitting Provider Psychiatry & Neurology Psychiatry; Emergency Provider Emergency Medicine; PCP Physician Assistant Medical; Visit Provider Radiology Diagnostic Radiology | DX: T71.162A Asphyxiation due to hanging, intentional self-harm, initial encounter (principal) | CPT/HCPCS: 72125 ==

== ENCOUNTER → 2024-06-27 11:16 | Outpatient (BNV) | payer BC, SELFPAY | PROVIDERS: Admitting Provider Psychiatry & Neurology Psychiatry; Emergency Provider Emergency Medicine; PCP Physician Assistant Medical; Visit Provider Psychiatry & Neurology Psychiatry | DX: F33.2 Major depressive disorder, recurrent severe without psychotic features (principal); F43.11 Post-traumatic stress disorder, acute | CPT/HCPCS: 99231; 99239 ==